=== PATIENT | male | born 2005 | race Caucasian/White ===

== ENCOUNTER 2023-03-12 07:22 | Emergency (ER) | payer OTHER ==
[~2023-03-12] VITALS: Ht 177.8 cm; Wt 113.4 kg
[2023-03-12 08:09] LABS: BASO # 0.1 10*3/uL (0.0-0.1); BASO % 0.4 % (0.0-1.0); EOS # 0.1 10*3/uL (0.0-0.4); EOS % 1.2 % (1.0-4.0); HEMATOCRIT 46.2 % (42.0-52.0); LYMPH # 3.9 10*3/uL (1.3-4.4); LYMPH % 34.1 % (27.0-41.0); MEAN CELL VOLUME 90.6 fl (80.0-94.0); MEAN CORPUSCULAR HGB 30.2 pg (27.0-31.0); MEAN CORPUSCULAR HGB CONC 33.3 g/dl (33.0-37.0); MEAN PLATELET VOLUME 10.1 fl (9.6-12.3); MONO # 1.1 10*3/uL (0.1-1.0); MONO % 9.4 % (3.0-9.0); NEUT # 6.3 10*3/uL (2.3-7.9); NEUT % 54.6 % (47.0-73.0); PLATELET COUNT AUTOMATED 237 10*3/uL (130-400); RED CELL DISTRI WIDTH 11.9 % (0-14.5); WHITE BLOOD COUNT 11.5 10*3/uL (4.8-10.8)
[2023-03-12 08:40] LABS: ALKALINE PHOSPHATASE 60 U/L (46-116); BUN 7 mg/dl (9-23); CHLORIDE 104 mmol/L (98-107); POTASSIUM 3.7 mmol/L (3.4-5.1); SGPT/ALT 12 U/L (10-49); TOTAL PROTEIN 7.3 gm/dL (6.0-8.0)
[2023-03-12] MEDS ORDERED: VISTARIL25 MG PO (08:48)
== END 2023-03-12 08:50 | disposition home or self-care (01) ==
LOC: ED 07:22
PROVIDERS: Emergency Medicine
DX: R07.89 Other chest pain (principal); R06.02 Shortness of breath

== ENCOUNTER 2025-09-10 22:42 | Emergency (ER) | payer OTHER ==
[~2025-09-10] VITALS: Ht 177.8 cm; Wt 104.3 kg
[~2025-09-10 22:42] MED LIST: VISTARIL25 MG PO
== END 2025-09-11 | disposition home or self-care (01) ==
LOC: ED 22:42
DX: B34.9 Viral infection, unspecified (principal)